=== PATIENT | female | born 1935 | race Caucasian/White ===

== ENCOUNTER → 2017-10-08 08:34 | Outpatient (CLI) | payer MEDICARE, OTHER, SELFPAY ==
--- NOTE | 2017-10-08 | DI.RAD.S_ITS ---
PROCEDURE: FL UPPER GI W AIR INDICATIONS: Dysphagia COMPARISON: None. 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 No suspicious abdominal calcifications. Visualized solid organ contours appear normal. Permanent pacemaker. Bony structures show no severe levoconvex rotoscoliosis at the thoracolumbar junction. Bilateral total hip arthroplasties. Esophagus: Esophageal mucosa is normal on air-contrast views. On single-contrast views, there is mildly abnormal esophageal peristalsis with incomplete relaxation of the cricopharyngeus muscle but no Zenker's diverticulum. No strictures, extrinsic mass effects, or diverticula. No hiatal hernia or elicited gastroesophageal reflux. There is normal transit of a calibrated barium tablet through the esophagus. Stomach: The stomach is normally distensible, with normal rugal fold thickness. No mucosal masses or ulcers. Pylorus and duodenal bulb appear normal in morphology. Duodenal folds are normal in thickness as well. IMPRESSION: 1. Mild esophageal dysmotility. No spontaneous or induced reflux. 2. Stomach and duodenum show normal distensibility and mucosal pattern without evidence of acute or chronic peptic ulcer disease or mass. Dictated by: Gagan Villar M.D. on 10/08/2017 at 9:54 Approved by: Gagan Villar M.D. on 10/08/2017 at 9:58
== END ==
PROVIDERS: PCP Physician Assistant; Visit Provider Physician Assistant
DX: K22.4 Dyskinesia of esophagus (principal); R13.10 Dysphagia, unspecified
CPT/HCPCS: 74247

== ENCOUNTER 2018-01-26 09:33 | Emergency (ER) | payer MEDICARE, OTHER, SELFPAY ==
[2018-01-26 09:55] VITALS: BP 129/64; PULSE 83; RESP 13; TEMP 37; O2SAT 95
--- NOTE | 2018-01-26 09:55 | ED.EXTPRO ---
HPI - Extremity Problem General Chief complaint: Extremity Problem,Nontraumatic Stated complaint: Pain lt thigh, sweats this AM Time Seen by Provider: 01/26/18 09:42 Source: patient Mode of arrival: ambulatory Limitations: no limitations History of Present Illness HPI Narrative: this is an 83-year-old female who comes to the emergency department with complaint of swelling and pain behind the left knee. Patient states that she noticed for several days. She states walking does cause a little bit more discomfort but she can walk without major issue. She has not had any falls, no trauma, no major injuries. She states she does like to garden. She also has not had similar symptoms in the past she takes an aspirin daily but no other blood thinners. She has not had similar symptoms in the past she has had revision of her right hip to remove excessive bone growth around her right hip replacement this was about a week ago. She states that the area is healing well. She has not had any fevers. She does not have any shortness of breath or chest pain. No nausea, no vomiting. No diarrhea or constipation. She does take a stool softener regularly. She states she felt very chilled and sweaty this morning when she woke up. She has not had any other skin color changes. Related Data Home Medications Medication Instructions Recorded Confirmed amlodipine [Norvasc] 2.5 mg PO QDAY #0 01/24/16 aspirin 81 mg PO QDAY #0 01/24/16 atorvastatin [Lipitor] 40 mg PO QDAY #0 01/24/16 citalopram 20 mg PO QDAY #0 01/24/16 fluticasone [Flonase Allergy 1 spray INTRANASAL QDAY #1 bot 01/24/16 Relief] lamotrigine [Lamictal] 25 mg PO BID #0 01/24/16 levothyroxine [Synthroid] 0.075 mg PO QDAY #0 01/24/16 multivitamin [Multiple Vitamins] 1 tab PO QDAY #0 tab 01/24/16 ranitidine HCl 75 mg PO QDAY #0 01/24/16 Previous Rx's Medication Instructions Recorded hydrocodone-acetaminophen [Shabbona] 1 tab PO Q4HP PRN #15 tab 10/04/16 hydrocodone-acetaminophen [[place]] 1 tab PO Q4HP PRN #15 tab 10/04/16 Allergies Allergy/AdvReac Type Severity Reaction Status Date / Time fluoxetine [FLUOXETINE] Allergy Unknown Unverified 07/04/17 13:10 meloxicam [MELOXICAM] Allergy Unknown Unverified 07/04/17 13:10 Sulfa (Sulfonamide Allergy Unknown RASH Unverified 07/04/17 13:10 Antibiotics) [SULFA (SULFONAMIDE ANTIBIOTICS)] Review of Systems Review of Systems All systems reviewed & are unremarkable except as noted in HPI and below Constitutional Denies chills, Reports excessive sweating (woke up this morning), Denies fever(s), Denies weakness and Reports other (sleep apnea) Cardiovascular Denies chest pain, Reports diaphoresis, Denies syncope, Denies edema, Denies irregular heart rhythm, Denies lightheadedness, Denies palpitations, Denies dyspnea, Denies dyspnea on exertion and Denies orthopnea Respiratory Denies chest congestion, Denies cough, Denies dyspnea and Denies dyspnea on exertion Gastrointestinal Gastrointestinal: Denies abdominal pain, Denies change in bowel habits, Reports constipation (takes stool softener, working well), Denies diarrhea, Denies nausea and Denies vomiting Musculoskeletal Reports as per HPI, Denies abnormal gait, Reports arthralgias, Reports joint swelling (behind left knee), Denies limited range of motion, Denies muscle weakness, Denies numbness and Denies tingling Integumentary/Breasts Denies rash and Denies unusual bruising Neurologic Denies abnormal gait, Denies syncope, Denies numbness, Denies tingling and Denies weakness Endocrine Reports excessive sweating (woke up this morning) and Denies palpitations PFSH Medical History Bipolar disorder (Acute) Dyslipidemia (Acute) Hypertension (Acute) Hypothyroid (Acute) Sleep apnea (Acute) Surgical History Status post left hip replacement (Acute) Status post right hip replacement (Acute) Social History marital status: Smoking Status: Never smoker Exam Narrative Exam Narrative: GEN: well nourished, well appearing Elderly female, alert and oriented x 3, patient appears to be in no acute distress. HEENT: Atraumatic HEART: Regular rate and rhythm without murmur, clicks, rubs. LUNGS:Lungs clear to auscultation, no wheezes, rales, crackles, chest moves symmetrically ABD:bowel sounds normal, soft, non-tender, no guarding, rebound, rigidity, no masses noted, no hepatosplenomegaly MSCL: Non-tender, no muscle atrophy, muscles strength 5/5 upper and lower extremities, full range of motion, patient has slight fullness in the posterior left knee region but no mass or discernible effusion, patient does not have any bony tenderness. She has full range of motion and negative joint laxity testing. Patient has 2+ dorsalis pedis and tibialis. There is no erythema, there is no other skin color changes no cyanosis or pallor. Patient does not have any clicking or crepitus. She ambulated into the room with a cane. On right hip patient has extensive scarring over the area of the hip secondary to old kelly but patient has an incision that is slightly hyperpigmented but appears to be healing well with no drainage, no erythema or signs of cellulitis or infection. Area is nontender to touch. NEURO:CN 2-12 intact, sensation normal Initial Vital Signs Initial Vital Signs: Vital Signs Temperature 98.6 F 01/26/18 09:55 Pulse Rate 83 01/26/18 09:55 Respiratory Rate 13 01/26/18 09:55 Blood Pressure 129/64 01/26/18 09:55 Pulse Oximetry 95 01/26/18 09:55 Course Orders Ordered: ED Orders 01/26/18 09:54 US periph venous low extrem lt Stat Vital Signs - 8 hr 01/26/18 09:55 Temperature 98.6 F Pulse Rate 83 Respiratory Rate 13 Blood Pressure 129/64 Pulse Oximetry 95 MDM - Extremity (Nontraumatic) Imaging Data Venous US: Radiologist's impression: prelim read is carpenter's cyst. normal veins, [place] [address] Ultrasound Report Signed Patient: Amada Clemons [facility]#: [id number] : 4Acct:[id number] Age/Sex: 83 / FDate of Service: 01/26/18 Loc: ED Accession Number: [id number] Procedure: US periph venous low extrem lt Ordering Provider: Armida Contreras D.O. PROCEDURE: US PERIPH VENOUS LOW EXTREM LT INDICATIONS: swelling/pain posterior left knee TECHNIQUE: Real-time imaging, as well as color and pulse Doppler interrogation, were performed of the lower extremity deep veins from the inguinal ligament to the popliteal fossa. COMPARISON: None. FINDINGS: The deep veins are normally compressible, and free of intraluminal thrombus. Color and pulse Doppler demonstrate normal phasic intraluminal flow. There is normal augmentation response to distal compression maneuver. IMPRESSION: No DVT found. Note is made of a ruptured Carpenter cyst posterior to the left knee measuring up to 1.4 x 2.9 x 7.7 cm. Dictated by: Fracisco Ball M.D. on 01/26/2018 at 13:16 Approved by: Fracisco Ball M.D. on 01/26/2018 at 13:17 [facility] Narrative Medical decision making narrative: Patient US shows ruptured Carpenter's cyst. Discussed with patient findings and signs/symptoms to watch for/reasons to return. Can do ice/heat for pain and tylenol prn. Patient comfortable with plan. All questions answered. Discharge Plan Departure Patient Disposition: Home Clinical Impression: Knee pain, left, Carpenter's cyst Discharge Date/Time: 01/26/18 11:11 Interventions: ED Discharge Assessment Last Done: 01/26/18 11:11 Instructions: Bakers Cyst Activity Restrictions/Additional Instructions: Follow up with your primary care physician in the next 5-7 days if no improvement in symptoms. Return to ER for fevers, rapidly increasing pain, swelling or shortness of breath. You may take tylenol as needed for pain up to 1000mg every 8 hours. Prescriptions: No Action amlodipine [Norvasc] 2.5 MG tablet 2.5 mg PO QDAY Qty: 0 RF: 0 aspirin 81 MG tablet,delayed release (DR/EC) 81 mg PO QDAY Qty: 0 RF: 0 atorvastatin [Lipitor] 40 MG tablet 40 mg PO QDAY Qty: 0 RF: 0 citalopram 20 MG tablet 20 mg PO QDAY Qty: 0 RF: 0 lamotrigine [Lamictal] 25 MG tablet 25 mg PO BID Qty: 0 RF: 0 levothyroxine [Synthroid] 75 MCG tablet 0.075 mg PO QDAY Qty: 0 RF: 0 fluticasone [Flonase Allergy Relief] 9.9 ML spray,suspension 1 spray Intranasal QDAY Qty: 1 RF: 0 multivitamin [Multiple Vitamins] 1 EACH tablet 1 tab PO QDAY Qty: 0 RF: 0 ranitidine HCl 75 MG tablet 75 mg PO QDAY Qty: 0 RF: 0 hydrocodone-acetaminophen [Shabbona] 5 MG/325 MG tablet 1 tab PO Q4HP PRNQty: 15 RF: 0 hydrocodone-acetaminophen [[place]bona] 5 MG/325 MG tablet 1 tab PO Q4HP PRNQty: 15 RF: 0 Referrals: Lyn Solano PA-C [Primary Care Provider] -
--- NOTE | 2018-01-26 10:06 | ED_ITS ---
HPI - Extremity Problem General Chief complaint: Extremity Problem,Nontraumatic Stated complaint: Pain lt thigh, sweats this AM Time Seen by Provider: 01/26/18 09:42 Source: patient Mode of arrival: ambulatory Limitations: no limitations History of Present Illness HPI Narrative: this is an 83-year-old female who comes to the emergency department with complaint of swelling and pain behind the left knee. Patient states that she noticed for several days. She states walking does cause a little bit more discomfort but she can walk without major issue. She has not had any falls, no trauma, no major injuries. She states she does like to garden. She also has not had similar symptoms in the past she takes an aspirin daily but no other blood thinners. She has not had similar symptoms in the past she has had revision of her right hip to remove excessive bone growth around her right hip replacement this was about a week ago. She states that the area is healing well. She has not had any fevers. She does not have any shortness of breath or chest pain. No nausea, no vomiting. No diarrhea or constipation. She does take a stool softener regularly. She states she felt very chilled and sweaty this morning when she woke up. She has not had any other skin color changes. Related Data Home Medications Medication Instructions Recorded Confirmed amlodipine [Norvasc] 2.5 mg PO QDAY #0 01/24/16 aspirin 81 mg PO QDAY #0 01/24/16 atorvastatin [Lipitor] 40 mg PO QDAY #0 01/24/16 citalopram 20 mg PO QDAY #0 01/24/16 fluticasone [Flonase Allergy 1 spray INTRANASAL QDAY #1 bot 01/24/16 Relief] lamotrigine [Lamictal] 25 mg PO BID #0 01/24/16 levothyroxine [Synthroid] 0.075 mg PO QDAY #0 01/24/16 multivitamin [Multiple Vitamins] 1 tab PO QDAY #0 tab 01/24/16 ranitidine HCl 75 mg PO QDAY #0 01/24/16 Previous Rx's Medication Instructions Recorded hydrocodone-acetaminophen [Eidson] 1 tab PO Q4HP PRN #15 tab 10/04/16 hydrocodone-acetaminophen [Eidson] 1 tab PO Q4HP PRN #15 tab 10/04/16 Allergies Allergy/AdvReac Type Severity Reaction Status Date / Time fluoxetine [FLUOXETINE] Allergy Unknown Unverified 07/04/17 13:10 meloxicam [MELOXICAM] Allergy Unknown Unverified 07/04/17 13:10 Sulfa (Sulfonamide Allergy Unknown RASH Unverified 07/04/17 13:10 Antibiotics) [SULFA (SULFONAMIDE ANTIBIOTICS)] Review of Systems Review of Systems All systems reviewed & are unremarkable except as noted in HPI and below Constitutional Denies chills, Reports excessive sweating (woke up this morning), Denies fever(s ), Denies weakness and Reports other (sleep apnea) Cardiovascular Denies chest pain, Reports diaphoresis, Denies syncope, Denies edema, Denies irregular heart rhythm, Denies lightheadedness, Denies palpitations, Denies dyspnea, Denies dyspnea on exertion and Denies orthopnea Respiratory Denies chest congestion, Denies cough, Denies dyspnea and Denies dyspnea on exertion Gastrointestinal Gastrointestinal: Denies abdominal pain, Denies change in bowel habits, Reports constipation (takes stool softener, working well), Denies diarrhea, Denies nausea and Denies vomiting Musculoskeletal Reports as per HPI, Denies abnormal gait, Reports arthralgias, Reports joint swelling (behind left knee), Denies limited range of motion, Denies muscle weakness, Denies numbness and Denies tingling Integumentary/Breasts Denies rash and Denies unusual bruising Neurologic Denies abnormal gait, Denies syncope, Denies numbness, Denies tingling and Denies weakness Endocrine Reports excessive sweating (woke up this morning) and Denies palpitations PFSH Medical History Bipolar disorder (Acute) Dyslipidemia (Acute) Hypertension (Acute) Hypothyroid (Acute) Sleep apnea (Acute) Surgical History Status post left hip replacement (Acute) Status post right hip replacement (Acute) Social History marital status: Smoking Status: Never smoker Exam Narrative Exam Narrative: GEN: well nourished, well appearing Elderly female, alert and oriented x 3, patient appears to be in no acute distress. HEENT: Atraumatic HEART: Regular rate and rhythm without murmur, clicks, rubs. LUNGS:Lungs clear to auscultation, no wheezes, rales, crackles, chest moves symmetrically ABD:bowel sounds normal, soft, non-tender, no guarding, rebound, rigidity, no masses noted, no hepatosplenomegaly MSCL: Non-tender, no muscle atrophy, muscles strength 5/5 upper and lower extremities, full range of motion, patient has slight fullness in the posterior left knee region but no mass or discernible effusion, patient does not have any bony tenderness. She has full range of motion and negative joint laxity testing. Patient has 2+ dorsalis pedis and tibialis. There is no erythema, there is no other skin color changes no cyanosis or pallor. Patient does not have any clicking or crepitus. She ambulated into the room with a cane. On right hip patient has extensive scarring over the area of the hip secondary to old kelly but patient has an incision that is slightly hyperpigmented but appears to be healing well with no drainage, no erythema or signs of cellulitis or infection. Area is nontender to touch. NEURO:CN 2-12 intact, sensation normal Initial Vital Signs Initial Vital Signs: Vital Signs Temperature 98.6 F 01/26/18 09:55 Pulse Rate 83 01/26/18 09:55 Respiratory Rate 13 01/26/18 09:55 Blood Pressure 129/64 01/26/18 09:55 Pulse Oximetry 95 01/26/18 09:55 Course Orders Ordered: ED Orders 01/26/18 09:54 US periph venous low extrem lt Stat Vital Signs - 8 hr 01/26/18 09:55 Temperature 98.6 F Pulse Rate 83 Respiratory Rate 13 Blood Pressure 129/64 Pulse Oximetry 95 MDM - Extremity (Nontraumatic) Imaging Data Venous US: Radiologist's impression: prelim read is carpenter's cyst. normal veins, [place] [address] Ultrasound Report Signed Patient: Amada Clemons [facility]#: [id number] : 4Acct:[id number] Age/Sex: 83 / FDate of Service: 01/26/18 Loc: ED Accession Number: [id number] Procedure: US periph venous low extrem lt Ordering Provider: Armida Contreras D.O. PROCEDURE: US PERIPH VENOUS LOW EXTREM LT INDICATIONS: swelling/pain posterior left knee TECHNIQUE: Real-time imaging, as well as color and pulse Doppler interrogation, were performed of the lower extremity deep veins from the inguinal ligament to the popliteal fossa. COMPARISON: None. FINDINGS: The deep veins are normally compressible, and free of intraluminal thrombus. Color and pulse Doppler demonstrate normal phasic intraluminal flow. There is normal augmentation response to distal compression maneuver. IMPRESSION: No DVT found. Note is made of a ruptured Carpenter cyst posterior to the left knee measuring up to 1.4 x 2.9 x 7.7 cm. Dictated by: Fracisco Ball M.D. on 01/26/2018 at 13:16 Approved by: Fracisco Ball M.D. on 01/26/2018 at 13:17 [facility] Narrative Medical decision making narrative: Patient US shows ruptured Carpenter's cyst. Discussed with patient findings and signs/symptoms to watch for/reasons to return. Can do ice/heat for pain and tylenol prn. Patient comfortable with plan. All questions answered. Discharge Plan Departure Patient Disposition: Home Clinical Impression: Knee pain, left, Carpenter's cyst Discharge Date/Time: 01/26/18 11:11 Interventions: ED Discharge Assessment Last Done: 01/26/18 11:11 Instructions: Bakers Cyst Activity Restrictions/Additional Instructions: Follow up with your primary care physician in the next 5-7 days if no improvement in symptoms. Return to ER for fevers, rapidly increasing pain, swelling or shortness of breath. You may take tylenol as needed for pain up to 1000mg every 8 hours. Prescriptions: No Action amlodipine [Norvasc] 2.5 MG tablet 2.5 mg PO QDAY Qty: 0 RF: 0 aspirin 81 MG tablet,delayed release (DR/EC) 81 mg PO QDAY Qty: 0 RF: 0 atorvastatin [Lipitor] 40 MG tablet 40 mg PO QDAY Qty: 0 RF: 0 citalopram 20 MG tablet 20 mg PO QDAY Qty: 0 RF: 0 lamotrigine [Lamictal] 25 MG tablet 25 mg PO BID Qty: 0 RF: 0 levothyroxine [Synthroid] 75 MCG tablet 0.075 mg PO QDAY Qty: 0 RF: 0 fluticasone [Flonase Allergy Relief] 9.9 ML spray,suspension 1 spray Intranasal QDAY Qty: 1 RF: 0 multivitamin [Multiple Vitamins] 1 EACH tablet 1 tab PO QDAY Qty: 0 RF: 0 ranitidine HCl 75 MG tablet 75 mg PO QDAY Qty: 0 RF: 0 hydrocodone-acetaminophen [Eidson] 5 MG/325 MG tablet 1 tab PO Q4HP PRNQty: 15 RF: 0 hydrocodone-acetaminophen [Eidson] 5 MG/325 MG tablet 1 tab PO Q4HP PRNQty: 15 RF: 0 Referrals: Lyn Solano PA-C [Primary Care Provider] -
== END 2018-01-26 11:11 | disposition home or self-care (01) ==
PROVIDERS: Emergency Provider Emergency Medicine; PCP Physician Assistant
DX: M71.20 Synovial cyst of popliteal space [Baker], unspecified knee (principal); M25.562 Pain in left knee
CPT/HCPCS: 93971; 99282; 99284

== ENCOUNTER → 2018-07-26 13:09 | Outpatient (CLI) | payer MEDICARE, OTHER, SELFPAY ==
--- NOTE | 2018-07-26 | DI.RAD.S_ITS ---
PROCEDURE: XR CHEST 2V INDICATIONS: COUGH TECHNIQUE: 2 views of the chest were acquired. COMPARISON: [facility], CT, THORAX WITH CONTRAST, 10/04/2016, 22:49. [facility], CR, CHEST 1 VIEW, 10/02/2016, 14:03. FINDINGS: Surgical changes and devices: Dual-lead cardiac pacer. Surgical clips projecting in the right axilla Lungs and pleura: No acute consolidation. Scattered subsegmental atelectasis and/or scarring . No pleural effusions or pneumothorax. 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 Mediastinum: Mediastinal contours are normal. Heart size is normal. Bones and chest wall: Severe scoliosis. IMPRESSION: No acute disease. Scattered scarring/atelectasis. Dictated by: Abraham Ojeda M.D. on 07/26/2018 at 16:33 Approved by: Abraham Ojeda M.D. on 07/26/2018 at 16:34
--- NOTE | 2018-07-26 | DI.RAD.S_ITS ---
PROCEDURE: XR KNEE LT 3V INDICATIONS: LEFT KNEE PAIN TECHNIQUE: 3 views of the knee were acquired. COMPARISON: [facility], , KNEE 3V LEFT, 06/23/2016, 11:46. FINDINGS: Bones: No fractures or dislocations. No suspicious bony lesions. Scattered degenerative subchondral sclerosis and spurring. Mild narrowing of the medial joint space. Small joint effusion. There is moderate narrowing of the patellofemoral joint space with lateral patellar subluxation Soft tissues: No joint effusion. No suspicious soft tissue calcifications. IMPRESSION: Moderate left knee joint degeneration. Slight interval progression since 06/23/16 Small joint effusion. Dictated by: Abraham Ojeda M.D. on 07/26/2018 at 15:47 Approved by: Abraham Ojeda M.D. on 07/26/2018 at 15:52
== END ==
PROVIDERS: PCP Physician Assistant; Visit Provider Internal Medicine
DX: M17.12 Unilateral primary osteoarthritis, left knee (principal); M25.462 Effusion, left knee; M41.9 Scoliosis, unspecified; R05 Cough; J98.4 Other disorders of lung; Z95.0 Presence of cardiac pacemaker
CPT/HCPCS: 71046; 73562